=== PATIENT | male | born 1955 | race Caucasian/White ===

== ENCOUNTER 2020-06-09 21:22 | Inpatient (IN) ==
[2020-06-10] MEDS ORDERED: Ondansetron ODT 4 MG TAB.RAPDIS SL PRN (01:55)
[2020-06-10] MEDS ORDERED: Naloxone 0.4 MG/ML INJ IVP PRN (01:55)
[2020-06-10] MEDS ORDERED: Acetaminophen 325 MG TABLET PO PRN (01:55)
[2020-06-10] MEDS ORDERED: Perflutren Lipid Microsphere 1.3 ML in 0.9 % Sodium Chloride 8.7 ML IVP PRN (01:57)
[2020-06-10] MEDS ORDERED: Ipratropium/Albuterol Neb 3 ML IH PRN (01:59)
[2020-06-10 02:51] LABS: INR 1.4; Prothrombin Time 15.9 Seconds (9.4-12.1)
[2020-06-10 03:07] LABS: Chol/HDL Ratio 3.8 (0-4.9); Cholesterol 96 mg/dL (< 200); HDL Cholesterol 25 mg/dL (40-59); LDL Cholesterol,Calculated 53 mg/dL (< 100); Magnesium 1.2 mg/dL (1.6-2.6); Phosphorous 4.2 mg/dL (2.7-4.5); Triglycerides 91 mg/dL (< 150)
[2020-06-10 03:08] LABS: Troponin I < 0.03 ng/mL (< 0.04)
[2020-06-10 03:21] LABS: Thyroid Stimulating Hormone 0.582 mcIU/mL (0.340-5.600)
[2020-06-10 03:46] LABS: Protein/Creatinine Ratio,Urine 0.69 mg/mg (0.00-0.20)
[2020-06-10 04:00] LABS: Hepatitis B Surface Antigen Nonreactive (Nonreactive)
[2020-06-10 04:29] LABS: Hepatitis B Core IgM Nonreactive (Nonreactive)
[2020-06-10 04:31] LABS: Hepatitis A Antibody IgM Nonreactive (Nonreactive)
[2020-06-10 06:41] LABS: Hepatitis C Virus Antibody Reactive (Nonreactive)
[2020-06-10 06:46] LABS: Hematocrit 46.6 % (37.5-50.1); Immature Granulocytes % 0.5 % (0-4); Lymphocytes # 0.5 K/mcL (0.6-4.6); Lymphocytes % 9.2 %; Mean Corpuscular HGB Conc 31.5 g/dL (31.6-35.5); Mean Corpuscular Hemoglobin 30.5 pg (28.0-33.3); Mean Platelet Volume 10.1 fL (9.4-12.4); Monocytes # 0.1 K/mcL (0.0-1.3); Monocytes % 2.2 %; Neutrophils # 5.1 K/mcL (1.6-8.9); Platelet Count 209 K/mcL (140-400); Red Blood Count 4.82 M/mcL (4.19-5.50); Red Cell Distribution Width 16.1 % (11.5-14.5); Segmented Neutrophils % 88.1 %
[2020-06-10 06:47] LABS: Hemoglobin 14.7 g/dL (12.9-16.9); Mean Corpuscular Volume 96.7 fL (83.0-100.0); White Blood Count 5.8 K/mcL (4.3-11.1)
[2020-06-10 07:06] LABS: BUN/Creatinine Ratio 21 (6-26); Blood Urea Nitrogen 27 mg/dL (8-23); Calcium 8.8 mg/dL (8.6-10.3); Carbon Dioxide 20 mEq/L (23-29); Chloride 103 mEq/L (98-107); Glucose 125 mg/dL (70-105); Osmolality,Calculated 287 (280-300); Potassium 4.9 mEq/L (3.5-5.1); Sodium 135 mEq/L (136-145); eGFR For African Americans > 60 (> 60); eGFR For Non-African Americans 56 (> 60)
[2020-06-10 07:17] LABS: Bilirubin,Urine Negative (Negative); Blood,Urine Moderate (Negative); Clarity,Urine Clear (Clear); Color,Urine Light-Yellow (Yellow); Glucose,Urine (UA) Normal (Normal); Ketones,Urine Negative (Negative); Leukocyte Esterase,Urine Negative (Negative); Mucus,Urine Few per lpf (None-Few); Nitrite,Urine Negative (Negative); PH,Urine 5.5 pH Units (5.0-8.0); Protein,Urine 30 mg/dL (Neg-Trace); Specific Gravity,Urine > 1.030 (1.010-1.025); Urobilinogen,Urine Normal (Normal); WBC,Urine 0-3 per hpf (0-3)
[2020-06-10] MEDS: *HR* Heparin 5,000 UNIT/ML VIAL SQ SCH ×2 (07:41→17:36)
[2020-06-10 08:12] LABS: Adenovirus Not Detected (Not Detect); Bordetella Pertussis Not Detected (Not Detect); Chlamydophila pneumoniae Not Detected (Not Detect); Coronavirus 229E Not Detected (Not Detect); Coronavirus HKU1 Not Detected (Not Detect); Coronavirus NL63 Not Detected (Not Detect); Coronavirus OC43 Not Detected (Not Detect); Human Metapneumovirus Not Detected (Not Detect); Human Rhinovirus/Enterovirus Not Detected (Not Detect); Influenza A Subtype 2009 H1 Not Detected (Not Detect); Influenza B Not Detected (Not Detect); Mycoplasma pneumoniae Not Detected (Not Detect); Parainfluenza Virus 1 Not Detected (Not Detect); Parainfluenza Virus 2 Not Detected (Not Detect); Parainfluenza Virus 3 Not Detected (Not Detect); Parainfluenza Virus 4 Not Detected (Not Detect); Respiratory Syncytial Virus Not Detected (Not Detect); SARS-CoV-2 Not Detected (Not Detect)
[2020-06-10 08:13] LABS: Estimated Average Glucose 117 mg/dl; Hemoglobin A1C 5.7 %
[2020-06-10] MEDS: Aspirin Enteric Coated 81 MG Tablet PO SCH (11:51)
[2020-06-10] MEDS: predniSONE 20 MG TABLET PO SCH (11:51)
[2020-06-10] MEDS: Furosemide 40 MG/4 ML VIAL IVP SCH (11:51)
[2020-06-10] MEDS: Azithromycin 250 MG TABLET PO SCH (11:51)
[2020-06-10] MEDS ORDERED: levoFLOXacin 750 MG TABLET PO SCH (21:00)
[2020-06-11] MEDS ORDERED: *HR* LORazepam 2 MG/ML VIAL IVP ONE (05:21)
[2020-06-11] MEDS: *HR* Heparin 5,000 UNIT/ML VIAL SQ SCH ×2 (05:38→18:38)
[2020-06-11 07:41] LABS: Basophils % 0.1 %; Hematocrit 45.9 % (37.5-50.1); Hemoglobin 14.6 g/dL (12.9-16.9); Immature Granulocytes % 0.7 % (0-4); Lymphocytes # 0.8 K/mcL (0.6-4.6); Lymphocytes % 4.1 %; Mean Corpuscular HGB Conc 31.8 g/dL (31.6-35.5); Mean Corpuscular Hemoglobin 31.1 pg (28.0-33.3); Mean Corpuscular Volume 97.7 fL (83.0-100.0); Mean Platelet Volume 10.1 fL (9.4-12.4); Monocytes # 1.2 K/mcL (0.0-1.3); Monocytes % 6.6 %; Platelet Count 189 K/mcL (140-400); Red Cell Distribution Width 16.3 % (11.5-14.5); Segmented Neutrophils % 88.5 %
[2020-06-11 07:46] LABS: Neutrophils # 16.6 K/mcL (1.6-8.9); White Blood Count 18.8 K/mcL (4.3-11.1)
[2020-06-11 08:05] LABS: Albumin 3.6 g/dL (3.5-5.7); Albumin/Globulin Ratio 1.1 (1.1-2.2); Calcium 9.1 mg/dL (8.6-10.3); Globulin 3.2 g/dL (2.4-3.5); Magnesium 2.3 mg/dL (1.6-2.6); Potassium 4.3 mEq/L (3.5-5.1); Total Protein 6.8 g/dL (6.4-8.9)
[2020-06-11] MEDS: Azithromycin 250 MG TABLET PO SCH (08:39)
[2020-06-11] MEDS: predniSONE 20 MG TABLET PO SCH (08:40)
[2020-06-11] MEDS: Aspirin Enteric Coated 81 MG Tablet PO SCH (08:40)
[2020-06-11] MEDS: Furosemide 40 MG/4 ML VIAL IVP SCH (08:40)
[2020-06-11] MEDS: Furosemide 20 MG TABLET PO SCH (18:38)
[2020-06-12] MEDS ORDERED: *HR* LORazepam 2 MG/ML VIAL IVP ONE ×2 (04:18→11:04)
[2020-06-12] MEDS: *HR* Heparin 5,000 UNIT/ML VIAL SQ SCH ×2 (04:33→16:56)
[2020-06-12 05:44] LABS: Basophils % 0.1 %; Hematocrit 46.4 % (37.5-50.1); Hemoglobin 14.7 g/dL (12.9-16.9); Immature Granulocytes % 0.6 % (0-4); Lymphocytes # 1.3 K/mcL (0.6-4.6); Lymphocytes % 7.2 %; Mean Corpuscular HGB Conc 31.7 g/dL (31.6-35.5); Mean Corpuscular Hemoglobin 30.5 pg (28.0-33.3); Mean Corpuscular Volume 96.3 fL (83.0-100.0); Mean Platelet Volume 10.1 fL (9.4-12.4); Monocytes # 1.3 K/mcL (0.0-1.3); Monocytes % 6.8 %; Neutrophils # 15.7 K/mcL (1.6-8.9); Platelet Count 196 K/mcL (140-400); Red Blood Count 4.82 M/mcL (4.19-5.50); Red Cell Distribution Width 16.4 % (11.5-14.5); Segmented Neutrophils % 85.3 %; White Blood Count 18.4 K/mcL (4.3-11.1)
[2020-06-12 05:50] LABS: INR 1.4; Prothrombin Time 16.2 Seconds (9.4-12.1)
[2020-06-12 06:07] LABS: Albumin 3.7 g/dL (3.5-5.7); Albumin/Globulin Ratio 1.1 (1.1-2.2); Bilirubin,Total 1.2 mg/dL (0.3-1.0); Calcium 9.1 mg/dL (8.6-10.3); Globulin 3.3 g/dL (2.4-3.5); Potassium 4.4 mEq/L (3.5-5.1)
[2020-06-12] MEDS: predniSONE 20 MG TABLET PO SCH (07:24)
[2020-06-12] MEDS: Aspirin Enteric Coated 81 MG Tablet PO SCH (07:24)
[2020-06-12] MEDS: Azithromycin 250 MG TABLET PO SCH (07:24)
[2020-06-12] MEDS: Furosemide 20 MG TABLET PO SCH ×2 (07:24→17:12)
[2020-06-12 12:06] LABS: Uric Acid 9.8 mg/dL (2.3-7.6)
[2020-06-13 04:15] LABS: Basophils % 0.1 %; Hematocrit 45.6 % (37.5-50.1); Hemoglobin 14.4 g/dL (12.9-16.9); Immature Granulocytes % 0.5 % (0-4); Lymphocytes # 1.5 K/mcL (0.6-4.6); Lymphocytes % 10.5 %; Mean Corpuscular HGB Conc 31.6 g/dL (31.6-35.5); Mean Corpuscular Hemoglobin 30.8 pg (28.0-33.3); Mean Corpuscular Volume 97.4 fL (83.0-100.0); Mean Platelet Volume 9.6 fL (9.4-12.4); Monocytes # 1.3 K/mcL (0.0-1.3); Monocytes % 9.5 %; Neutrophils # 10.9 K/mcL (1.6-8.9); Platelet Count 172 K/mcL (140-400); Red Blood Count 4.68 M/mcL (4.19-5.50); Red Cell Distribution Width 16.5 % (11.5-14.5); Segmented Neutrophils % 79.4 %; White Blood Count 13.8 K/mcL (4.3-11.1)
[2020-06-13 04:29] VITALS: BP 119/82
[2020-06-13 04:37] LABS: Calcium 8.9 mg/dL (8.6-10.3); Potassium 4.6 mEq/L (3.5-5.1)
[2020-06-13] MEDS: *HR* Heparin 5,000 UNIT/ML VIAL SQ SCH (05:42)
[2020-06-13] MEDS: predniSONE 20 MG TABLET PO SCH (08:12)
[2020-06-13] MEDS: Aspirin Enteric Coated 81 MG Tablet PO SCH (08:12)
[2020-06-13] MEDS ORDERED: Metoprolol XL (24 HR) Succ 25 MG TAB.ER.24H PO SCH (11:00)
== END 2020-06-13 12:02 | disposition left against medical advice (07) | DRG 871 ==
LOC: 2ANU → SUATTDRO 06-10 01:16
PROVIDERS: ADMIT Internal Medicine Nephrology; ATTEND Internal Medicine

== ENCOUNTER 2020-08-02 14:58 | Inpatient (IN) ==
[2020-08-02] MEDS ORDERED: Ipratropium/Albuterol Neb 3 ML IH PRN (16:21)
[2020-08-02 17:29] LABS: ABG Base Excess -8 mEq/L (-2 to 3); ABG HCO3 14 mEq/L (21-27); ABG Oxygen Saturation 98 % (95-98); ABG PCO2 19 mmHg (35-45); ABG PH 7.47 pH Units (7.32-7.45); ABG PO2 100 mmHg (85-104); ABG TCO2 14 mEq/L (20-26)
[2020-08-02] MEDS: Dexmedetomidine HCl 400 MCG/100 ML MLS IVC SCH (17:30)
[2020-08-02 17:37] LABS: Basophils # 0.1 K/mcL (0.0-0.2); Basophils % 0.6 %; Hematocrit 40.8 % (37.5-50.1); Hemoglobin 12.4 g/dL (12.9-16.9); Immature Granulocytes % 2.6 % (0-4); Lymphocytes # 1.9 K/mcL (0.6-4.6); Lymphocytes % 11.6 %; Mean Corpuscular HGB Conc 30.4 g/dL (31.6-35.5); Mean Corpuscular Hemoglobin 28.3 pg (28.0-33.3); Mean Corpuscular Volume 93.2 fL (83.0-100.0); Monocytes # 2.2 K/mcL (0.0-1.3); Monocytes % 13.5 %; Neutrophils # 11.5 K/mcL (1.6-8.9); Platelet Count 251 K/mcL (140-400); Red Blood Count 4.38 M/mcL (4.19-5.50); Red Cell Distribution Width 16.9 % (11.5-14.5); Segmented Neutrophils % 71.7 %
[2020-08-02] MEDS ORDERED: Ringers Solution, Lactated 500 ML IVC ONE (17:52)
[2020-08-02 17:57] LABS: BUN/Creatinine Ratio 41 (6-26); Blood Urea Nitrogen 50 mg/dL (8-23); Calcium 8.7 mg/dL (8.6-10.3); Carbon Dioxide 17 mEq/L (23-29); Chloride 100 mEq/L (98-107); Glucose 105 mg/dL (70-105); Osmolality,Calculated 282 (280-300); Sodium 129 mEq/L (136-145); eGFR For African Americans > 60 (> 60); eGFR For Non-African Americans 59 (> 60)
[2020-08-02] MEDS: Acetaminophen 325 MG TABLET PO SCH (18:23)
[2020-08-02 19:17] LABS: Adenovirus Not Detected (Not Detect); Bordetella Pertussis Not Detected (Not Detect); Chlamydophila pneumoniae Not Detected (Not Detect); Coronavirus 229E Not Detected (Not Detect); Coronavirus HKU1 Not Detected (Not Detect); Coronavirus NL63 Not Detected (Not Detect); Coronavirus OC43 Not Detected (Not Detect); Human Metapneumovirus Not Detected (Not Detect); Human Rhinovirus/Enterovirus Not Detected (Not Detect); Influenza A Subtype 2009 H1 Not Detected (Not Detect); Influenza B Not Detected (Not Detect); Mycoplasma pneumoniae Not Detected (Not Detect); Parainfluenza Virus 1 Not Detected (Not Detect); Parainfluenza Virus 2 Not Detected (Not Detect); Parainfluenza Virus 3 Not Detected (Not Detect); Parainfluenza Virus 4 Not Detected (Not Detect); Respiratory Syncytial Virus Not Detected (Not Detect); SARS-CoV-2 Not Detected (Not Detect)
[2020-08-02] MEDS: Doxycycline 100 MG CAPSULE PO SCH (20:35)
[2020-08-02] MEDS ORDERED: Naloxone 0.4 MG/ML INJ IVP PRN (21:23)
[2020-08-02] MEDS: *HR* HYDROmorphone (PF) 1 MG/ML SYRINGE IVP PRN (22:12)
[2020-08-03] MEDS ORDERED: *HR* Heparin 5,000 UNIT/ML VIAL SQ SCH
[2020-08-03] MEDS: Acetaminophen 325 MG TABLET PO SCH ×4 (00:06→17:59)
[2020-08-03 00:42] LABS: BUN/Creatinine Ratio 38 (6-26); Blood Urea Nitrogen 53 mg/dL (8-23); Calcium 9.1 mg/dL (8.6-10.3); Carbon Dioxide 12 mEq/L (23-29); Chloride 99 mEq/L (98-107); Glucose 34 mg/dL (70-105); Osmolality,Calculated 283 (280-300); Potassium 6.2 mEq/L (3.5-5.1); Sodium 131 mEq/L (136-145); eGFR For African Americans > 60 (> 60); eGFR For Non-African Americans 51 (> 60)
[2020-08-03] MEDS ORDERED: *HR* Dextrose 50 % in Water (Vial) 50 ML VIAL ONE (00:46)
[2020-08-03] MEDS ORDERED: Dextrose Gel 15 GM/37.5 ML TUBE PO PRN ×4 (00:51→19:06)
[2020-08-03] MEDS ORDERED: D5% in Water 1,000 ML IVC PRN (00:51)
[2020-08-03] MEDS: *HR* Dextrose 50 % in Water (Vial) 50 ML VIAL IVP PRN ×2 (00:54→00:55)
[2020-08-03] MEDS ORDERED: *HR* Heparin 5,000 UNIT/ML VIAL IVP PRN ×4 (01:02→19:06)
[2020-08-03] MEDS ORDERED: *HR* Heparin 5,000 UNIT/ML VIAL IVP ONE (01:02)
[2020-08-03] MEDS ORDERED: Heparin 25,000UNIT/250ML 1/2NS 25,000 UNIT/250 ML IV.SOLN IVC SCH ×2 (01:15→19:06)
[2020-08-03 01:36] LABS: INR 3.2; Prothrombin Time 35.4 Seconds (9.4-12.1)
[2020-08-03 01:38] LABS: Activated Partial Thrombo Time 30.2 Seconds (26.0-36.0)
[2020-08-03 02:17] LABS: Albumin 3.1 g/dL (3.5-5.7); Albumin/Globulin Ratio 1.1 (1.1-2.2); Bilirubin,Direct 1.3 mg/dL (0.0-0.2); Bilirubin,Indirect 1.7 mg/dL (0.0-1.0); Globulin 2.8 g/dL (2.4-3.5); Total Protein 5.9 g/dL (6.4-8.9)
[2020-08-03] MEDS: D5% in 0.9% NACL 1,000 ML IVC SCH ×2 (03:07→13:06)
[2020-08-03] MEDS: Sodium Bicarbonate 150 MEQ in D5% in Water 1,000 ML IVC SCH ×3 (03:23→21:27)
[2020-08-03 06:29] LABS: Basophils # 0.1 K/mcL (0.0-0.2); Basophils % 0.3 %; Hematocrit 36.7 % (37.5-50.1); Hemoglobin 11.3 g/dL (12.9-16.9); Immature Granulocytes % 2.3 % (0-4); Lymphocytes % 5.3 %; Mean Corpuscular HGB Conc 30.8 g/dL (31.6-35.5); Mean Corpuscular Hemoglobin 28.2 pg (28.0-33.3); Mean Corpuscular Volume 91.5 fL (83.0-100.0); Mean Platelet Volume 9.7 fL (9.4-12.4); Monocytes # 2.5 K/mcL (0.0-1.3); Monocytes % 13.9 %; Neutrophils # 14.1 K/mcL (1.6-8.9); Nucleated Red Blood Cells 7.2 /100 WBC (0); Platelet Count 222 K/mcL (140-400); Red Blood Count 4.01 M/mcL (4.19-5.50); Red Cell Distribution Width 16.7 % (11.5-14.5); Segmented Neutrophils % 78.2 %
[2020-08-03 07:10] LABS: Calcium 8.7 mg/dL (8.6-10.3); Potassium 5.3 mEq/L (3.5-5.1)
[2020-08-03] MEDS: Doxycycline 100 MG CAPSULE PO SCH ×2 (09:40→20:50)
[2020-08-03] MEDS ORDERED: Vancomycin 1,250 MG/262.5 ML IV.SOLN IVPB ONE ×3 (10:48→19:06)
[2020-08-03] MEDS: *HR* HYDROmorphone (PF) 1 MG/ML SYRINGE IVP PRN ×2 (13:20→22:15)
[2020-08-03] MEDS ORDERED: Perflutren Lipid Microsphere 1.3 ML in 0.9 % Sodium Chloride 8.7 ML IVP PRN (14:50)
[2020-08-03] MEDS: Dexmedetomidine HCl 400 MCG/100 ML MLS IVC SCH (15:45)
[2020-08-03] MEDS ORDERED: D5% in 0.9% NACL 1,000 ML IVC SCH (19:06)
[2020-08-03] MEDS ORDERED: Ipratropium/Albuterol Neb 3 ML IH PRN (19:06)
[2020-08-03] MEDS ORDERED: *HR* Dextrose 50 % in Water (Vial) 50 ML VIAL IVP PRN (19:06)
[2020-08-03] MEDS ORDERED: Naloxone 0.4 MG/ML INJ IVP PRN (19:06)
[2020-08-03] MEDS: Piperacillin/Tazobactam 3.375 GM in 0.9 % Sodium Chloride Mini Bag 100 ML IVPB SCH (20:51)
[2020-08-03] MEDS ORDERED: Piperacillin/Tazobactam 3.375 GM in 0.9 % Sodium Chloride Mini Bag 100 ML IVPB SCH (22:00)
[2020-08-04 02:00] LABS: Basophils # 0.1 K/mcL (0.0-0.2); Basophils % 0.3 %; Hematocrit 35.3 % (37.5-50.1); Hemoglobin 11.2 g/dL (12.9-16.9); Immature Granulocytes % 1.1 % (0-4); Lymphocytes # 1.5 K/mcL (0.6-4.6); Lymphocytes % 6.5 %; Mean Corpuscular HGB Conc 31.7 g/dL (31.6-35.5); Mean Corpuscular Hemoglobin 27.9 pg (28.0-33.3); Mean Corpuscular Volume 87.8 fL (83.0-100.0); Mean Platelet Volume 10.3 fL (9.4-12.4); Monocytes # 2.7 K/mcL (0.0-1.3); Monocytes % 11.4 %; Neutrophils # 18.9 K/mcL (1.6-8.9); Nucleated Red Blood Cells 6.1 /100 WBC (0); Platelet Count 249 K/mcL (140-400); Red Blood Count 4.02 M/mcL (4.19-5.50); Red Cell Distribution Width 16.4 % (11.5-14.5); Segmented Neutrophils % 80.7 %; White Blood Count 23.4 K/mcL (4.3-11.1)
[2020-08-04 02:14] LABS: BUN/Creatinine Ratio 39 (6-26); Blood Urea Nitrogen 54 mg/dL (8-23); Calcium 8.7 mg/dL (8.6-10.3); Carbon Dioxide 21 mEq/L (23-29); Chloride 95 mEq/L (98-107); Glucose 118 mg/dL (70-105); Osmolality,Calculated 280 (280-300); Potassium 5.5 mEq/L (3.5-5.1); Sodium 127 mEq/L (136-145); eGFR For African Americans > 60 (> 60); eGFR For Non-African Americans 51 (> 60)
[2020-08-04] MEDS ORDERED: Vancomycin 1,250 MG/262.5 ML IV.SOLN IVPB SCH ×2 (03:00→04:00)
[2020-08-04] MEDS: Piperacillin/Tazobactam 3.375 GM in 0.9 % Sodium Chloride Mini Bag 100 ML IVPB SCH ×2 (04:47→14:34)
[2020-08-04] MEDS: Sodium Bicarbonate 150 MEQ in D5% in Water 1,000 ML IVC SCH (05:26)
[2020-08-04] MEDS: Doxycycline 100 MG CAPSULE PO SCH (08:41)
[2020-08-04] MEDS: *HR* HYDROmorphone (PF) 1 MG/ML SYRINGE IVP PRN ×2 (08:41→14:58)
[2020-08-04] MEDS ORDERED: Aspirin 81 MG TAB.CHEW PO SCH (09:00)
[2020-08-04 11:05] LABS: Albumin 2.9 g/dL (3.5-5.7); Albumin/Globulin Ratio 1.2 (1.1-2.2); Bilirubin,Direct 1.2 mg/dL (0.0-0.2); Bilirubin,Total 2.2 mg/dL (0.3-1.0); Globulin 2.4 g/dL (2.4-3.5); Total Protein 5.3 g/dL (6.4-8.9)
[2020-08-04] MEDS ORDERED: *HR* OxyCODONE ER (12 HR) 10 MG TABLET PO SCH (18:00)
[2020-08-04] MEDS: Morphine Sulfate ER (12 HR) 15 MG TABLET.ER PO SCH (22:20)
[2020-08-05] MEDS: Morphine Sulfate ER (12 HR) 15 MG TABLET.ER PO SCH (06:02)
[2020-08-05 07:59] VITALS: BP 102/71
== END 2020-08-05 11:19 | disposition hospice, home (50) | DRG 871 ==
LOC: ICNU → OBSVTOIN 16:00 → 2NNU 08-03 19:51
PROVIDERS: ADMIT Family Medicine; ATTEND Family Medicine